=== PATIENT | male | born 1995 | race Caucasian/White ===

== ENCOUNTER 2019-10-30 13:16 | Emergency (ER) | payer OTHER ==
[~2019-10-30] VITALS: Ht 177.8 cm; Wt 79.4 kg
[2019-10-30 13:25] VITALS: BP 164/83
[2019-10-30] MEDS ORDERED: TORADOL ONE (13:36)
[2019-10-30] MEDS ORDERED: ADACEL VIAL IM ONE ×2 (13:37→14:00)
[2019-10-30] MEDS ORDERED: TORADOL IM STA (13:37)
--- NOTE | 2019-10-30 13:45 | ER.PDOC ---
General Chief Complaint: Extremities Stated Complaint: INJURED FOOT Time seen by MD: 13:39 Source: patient Exam Limitations: no limitations History of Present Illness Initial Comments Pain right foot from a puncture wound with a nail 3 days ago. Patient pulled out the entire nail but has been in pain since then. Severity: moderate Modifying Factors: pain on movement Allergies: Coded Allergies: No Known Allergies (Unverified , 10/30/19) Past Medical History Medical History: no pertinent history Surgical History: no surgical history Family History Significant Family History: no pertinent family hx Social History Alcohol Use: heavy Drug Use: none Review of Systems Constitutional: no symptoms reported EENTM: no symptoms reported Respiratory: no symptoms reported Cardiovascular: no symptoms reported Gastrointestinal: no symptoms reported Genitourinary: no symptoms reported Musculoskeletal: see HPI Skin: see HPI All Other Systems: Reviewed and Negative Physical Exam General Appearance: Alert, No Apparent Distress Foot: see diagram 1 - PW, no redness or eytherma of foot. Mild tenderness on palpation. Ankle: nml inspection, non-tender, nml ROM, no joint swelling, skin intact Gait: limited by pain Neuro: sensation nml, motor nml Vascular: no vascular compromise Tendons: tendon function nml Leg/Knee/Thigh: uninjured above ankle Head/ENT: nml inspection, pharynx nml Neck/Back: nml inspection, non-tender Resp/CVS: no resp distress Abdomen: non-tender, no organomegaly Results/Orders Results/Orders Orders - LALIT VERA MD Ketorolac Tromethamine (Toradol) (10/30/19 13:36) Vital Signs Date Time Temp Pulse Resp B/P (MAP) Pulse Ox O2 Delivery O2 Flow Rate FiO2 10/30/19 13:25 98.1 108 16 97 10/30/19 13:25 98.1 108 18 164/83 (110) 97 Room Air 10/30/19 13:25 98.1 108 18 Departure Time of Disposition: 13:44 Disposition: 01 HOME, SELF-CARE Impression: Primary Impression: Puncture wound of foot, right Condition: Stable Referrals: PCP,UNKNOWN (PCP) PRIMARY CARE PROVIDER Additional Instructions: Keflex Tramadol Rest foot at home and return to work on 11/02/19 F/U with your PCP in 2-3 days Return to ED if any concerns Duration or Time Spent with Pa: 10 min Problem Qualifiers Primary Impression: Puncture wound of foot, right Encounter type: initial encounter Qualified Codes: S91.331A - Puncture wound without foreign body, right foot, initial encounter LALIT VERA MD Oct 30, 2019 13:45
== END 2019-10-30 13:53 | disposition home or self-care (01) ==
LOC: ER 13:16
DX: S91.331A Puncture wound without foreign body, right foot, initial encounter (principal); W45.0XXA Nail entering through skin, initial encounter; Y93.89 Activity, other specified; Y92.89 Other specified places as the place of occurrence of the external cause; Y99.8 Other external cause status
CPT/HCPCS: 90471; 90715; 96372; 99284; J1885